=== PATIENT | male | born 2000 | race Caucasian/White ===

== ENCOUNTER 2022-03-07 17:09 | Emergency (ER) | payer OTHER ==
[2022-03-07 18:37] LABS: RED BLOOD COUNT 5.59 M/UL (4.20-5.50); WHITE BLOOD COUNT 4.8 K/UL (4.5-11.0)
[2022-03-07 18:58] LABS: BUN/CREATININE RATIO 7 (0-10)
[2022-03-07] MEDS ORDERED: IBU600 MG PO (21:11)
[2022-03-07] MEDS ORDERED: ZOFRAN ODT 4 MG4 MG SL (21:11)
== END 2022-03-07 21:45 | disposition home or self-care (01) ==
LOC: ER1 17:09
PROVIDERS: Family Medicine
DX: N20.0 Calculus of kidney (principal); R30.0 Dysuria; F17.290 Nicotine dependence, other tobacco product, uncomplicated; R31.9 Hematuria, unspecified
CPT/HCPCS: 80053; 81001; 83690; 85025; 96372; 99284; J1885